=== PATIENT | female | born 2000 | race Caucasian/White ===

== ENCOUNTER 2021-05-15 23:42 | Emergency (ER) | payer OTHER, MEDICAID ==
[~2021-05-15] VITALS: Ht 157.5 cm; Wt 51.7 kg
[2021-05-16 00:07] VITALS: BP_SYST 116
[2021-05-16] MEDS ORDERED: ONDANSETRON 4 MG ODT TAB PO ONE (01:00)
[2021-05-16] MEDS ORDERED: MECLIZINE HCL 25 MG TABLET (ANITVERT) PO ONE (01:00)
[2021-05-16] MEDS ORDERED: MECL-108 PO (02:27)
[2021-05-16 02:35] VITALS: BP_SYST 116
== END 2021-05-16 02:35 | disposition home or self-care (01) ==
LOC: SED 23:42
DX: H81.10 Benign paroxysmal vertigo, unspecified ear (principal); Z79.899 Other long term (current) drug therapy
CPT/HCPCS: 99282; J8597